=== PATIENT | male | born 1945 | race Caucasian/White ===

== ENCOUNTER 2022-02-08 11:39 | Emergency (ER) | payer MEDICARE, OTHER ==
[2022-02-08] MEDS ORDERED: Ketorolac Tromethamine 30 MG/ML VIAL ONE (13:06)
[2022-02-08] MEDS ORDERED: methylPREDNISolone Sod Succ/PF 125 MG/2 ML VIAL ONE (13:06)
[2022-02-08] MEDS ORDERED: Morphine 4 MG/ML VIAL ONE (13:06)
== END 2022-02-08 15:33 | disposition home or self-care (01) ==
LOC: MADERS 11:39
DX: M54.50 Low back pain, unspecified (principal); I10 Essential (primary) hypertension; J44.9 Chronic obstructive pulmonary disease, unspecified
CPT/HCPCS: 96374; 96375; J1885; J2270; J2930